=== PATIENT | female | born 1945 | race Caucasian/White ===

== ENCOUNTER 2021-05-16 09:14 | Emergency (ER) | payer OTHER ==
[2021-05-16 09:55] VITALS: BP 148/66; PULSE 74; TEMP 97.5; BMI 36.8
[2021-05-16] MEDS ORDERED: LIDOCAINE 5% TOPICAL PATCH TP ONE (10:23)
[2021-05-16] MEDS ORDERED: LIDOCAINE 5% TOPICAL PATCH ONE (10:38)
[2021-05-16] MEDS ORDERED: traMADol HCL 50 MG TABLET PO ONE (10:53)
[2021-05-16] MEDS ORDERED: traMADol HCL 50 MG TABLET ONE (10:57)
[2021-05-16] MEDS ORDERED: LIDOCAINE PATCH REMOVAL MC ONE (22:00)
== END 2021-05-16 14:21 | disposition home or self-care (01) ==
LOC: JER 09:14
DX: S09.90XA Unspecified injury of head, initial encounter (principal); W01.0XXA Fall on same level from slipping, tripping and stumbling without subsequent striking against object, initial encounter
CPT/HCPCS: 70450-TC; 72125-TC; 99284-25